=== PATIENT | female | born 1995 | race African-American/Black ===

== ENCOUNTER 2019-10-31 12:54 | Emergency (ER) | payer MEDICAID ==
[~2019-10-31] VITALS: Ht 167.6 cm; Wt 54.0 kg
--- NOTE | 2019-10-31 13:13 | NUR ---
CAME IN FOR MAKE-UP PAD STUCK IN VAGINA SINCE YESTERDAY. ALSO C/O LOWER ABDOMINAL PAIN / PS. TO ER BED 16, HOOKED TO MONITOR, CHANGED TO HOSP GOWN, WARM BLANKET PROVIDED, PATIENT AAO x 4, BREATHING EVEN AND UNLABORED, AWAITING MD LUGO.
--- NOTE | 2019-10-31 14:30 | NUR ---
CHAPERONED DR GUIDRY AT [facility] FOR PELVIC EXAM.
--- NOTE | 2019-10-31 14:40 | NUR ---
WET MOUNT TAKEN BY DR GUIDRY AND URINE SAMPLE SENT TO LAB.
[2019-10-31] MEDS ORDERED: KETOROLAC TROMETHAMINE INJ 30 MG/ML VIAL IM ONE (15:00)
[2019-10-31] MEDS ORDERED: KETOROLAC TROMETHAMINE 15 MG/ML VIAL ONE (15:01)
[2019-10-31] MEDS ORDERED: TDAP [DIPH/PERTUSSIS/TET] 0.5 ML VIAL IM ONE ×2 (15:01→15:30)
[2019-10-31] MEDS ORDERED: CLINDAMYCIN HCL 150 MG CAPSULE PO ONE ×2 (15:08→15:30)
[2019-10-31 15:11] LABS: APPEARANCE,URINE Cloudy (CLEAR); BILIRUBIN,URINE SMALL (NEGATIVE); BLOOD, URINE Large Ery/uL (NEGATIVE); KETONES,URINE 15 (NEGATIVE); LEUKOCYTE ESTERASE ,URINE Negative (NEGATIVE); NITRITE, URINE Negative (NEGATIVE); PROTEIN,URINE 30 mg/dl (NEGATIVE); UGLUCOSE Negative (NEGATIVE)
[2019-10-31 15:12] LABS: COLOR,URINE DARK YELLOW (YELLOW)
--- NOTE | 2019-10-31 15:22 | NUR ---
PATIENT BACK TO ROOM FROM CT SCAN
[2019-10-31 15:23] LABS: BACTERIA,URINE Few /HPF (None Seen); RBC,URINE 21-50 /HPF (0-2); SQUAMOUS EPITHELIAL CELL,UR Moderate /HPF (None Seen)
--- NOTE | 2019-10-31 16:11 | NUR ---
Patient discharged to home in stable condition. Written and verbal after care instructions given. Patient verbalizes understanding of instruction.
[2019-10-31 16:14] VITALS: BP 121/71
== END 2019-10-31 16:14 | disposition home or self-care (01) ==
LOC: ER 12:56
DX: T19.2XXA Foreign body in vulva and vagina, initial encounter (principal); S81.812A Laceration without foreign body, left lower leg, initial encounter; S81.811A Laceration without foreign body, right lower leg, initial encounter; S21.112A Laceration without foreign body of left front wall of thorax without penetration into thoracic cavity, initial encounter; S21.111A Laceration without foreign body of right front wall of thorax without penetration into thoracic cavity, initial encounter; S40.022A Contusion of left upper arm, initial encounter; S40.021A Contusion of right upper arm, initial encounter; S30.0XXA Contusion of lower back and pelvis, initial encounter; R51 Headache; Y04.8XXA Assault by other bodily force, initial encounter; Y93.89 Activity, other specified; Y92.89 Other specified places as the place of occurrence of the external cause; Y99.8 Other external cause status
CPT/HCPCS: 70450; 71111; 72125; 81001; 84703; 87210; 87491; 87591; 90471; 90715; 96372; 99285; J1885; 81000-TC

== ENCOUNTER 2020-04-06 09:56 | Emergency (ER) | payer MEDICAID ==
[~2020-04-06] VITALS: Ht 172.7 cm; Wt 61.2 kg
--- NOTE | 2020-04-06 10:12 | NUR ---
URINE SPECIMEN COLLECTED AND SENT TO LAB.
--- NOTE | 2020-04-06 10:18 | NUR ---
AT BEDSIDE FOR EVAL.
[2020-04-06] MEDS ORDERED: HYDROCODONE/APAP 10/325MG TABLET PO ONE (10:30)
[2020-04-06] MEDS ORDERED: HYDROCODONE/APAP 10/325MG TABLET ONE (10:56)
[2020-04-06 11:01] LABS: BASOPHILS # (AUTO) 0.1 /CMM (0.0-0.2); BASOPHILS % (AUTO) 0.7 % (0.0-2.0); HEMATOCRIT 34 % (33-45); HEMOGLOBIN 11.1 g/dL (11.5-14.8); LYMPHOCYTES # (AUTO) 0.8 /CMM (0.8-4.8); LYMPHOCYTES % (AUTO) 9.4 % (20.0-44.0); MEAN CORPUSCULAR HGB CONC 33 g/dl (31.0-36.0); MEAN CORPUSCULAR VOLUME 96 fL (82-100); MONOCYTES # (AUTO) 0.6 /CMM (0.1-1.30); NEUTROPHILS # (AUTO) 7.5 /CMM (1.8-8.9); NEUTROPHILS % (AUTO) 82.9 % (43.0-81.0); PLATELET COUNT (AUTO) 186 /CMM (150-450); RED BLOOD CELL COUNT(AUTO) 3.55 MIL/uL (4.0-5.2)
[2020-04-06 11:16] LABS: CALCIUM, SERUM 9.1 mg/dL (8.5-10.1); POTASSIUM 3.6 mmol/L (3.5-5.1)
[2020-04-06 11:21] LABS: ALBUMIN 3.1 g/dL (3.4-5.0); BILIRUBIN,DIRECT 0.3 mg/dL (0.0-0.2); BILIRUBIN,TOTAL 1.2 mg/dL (0.2-1.0); TOTAL PROTEIN, SERUM 7.5 g/dL (6.4-8.2)
[2020-04-06 11:24] LABS: BILIRUBIN,URINE Negative (NEGATIVE); BLOOD, URINE Moderate Ery/uL (NEGATIVE); COLOR,URINE YELLOW (YELLOW); LEUKOCYTE ESTERASE ,URINE Large (NEGATIVE); NITRITE, URINE Negative (NEGATIVE); PH,URINE 6.5 (5.0-8.0); PROTEIN,URINE 30 mg/dl (NEGATIVE); UGLUCOSE Negative (NEGATIVE); UROBILINOGEN,URINE 0.2 EU/dL (0.2)
--- NOTE | 2020-04-06 11:45 | NUR ---
DR MARCUS SPEAKING WITH DR GALINDO
[2020-04-06 11:54] LABS: BACTERIA,URINE Many /HPF (None Seen); SQUAMOUS EPITHELIAL CELL,UR Moderate /HPF (None Seen); WBC,URINE TOO NUMEROUS TO COUN /HPF (0-3)
[2020-04-06] MEDS ORDERED: CEFEPIME 1 GM in IV D5W 50 ML IV ONE (12:00)
[2020-04-06] MEDS ORDERED: DOXYCYCLINE 100 MG in IV D5W 250 ML IV ONE (12:00)
--- NOTE | 2020-04-06 12:20 | NUR ---
Updated and Re-evaluated by MD Patient discharged to home in stable condition. Written and verbal after care instructions given. Patient verbalizes understanding of instruction.
[2020-04-06] MEDS ORDERED: ONDANSETRON HCL/PF 4 MG/2 ML VIAL ONE (14:26)
[2020-04-06] MEDS ORDERED: MORPHINE SULFATE INJ 4 MG/ML DISP.SYRIN ONE (14:26)
[2020-04-06] MEDS ORDERED: ONDANSETRON HCL/PF 4 MG/2 ML VIAL IM ONE (14:30)
[2020-04-06] MEDS ORDERED: MORPHINE SULFATE INJ 10 MG/ML DISP.SYRIN IM ONE (14:30)
[2020-04-06 14:52] VITALS: BP 120/75
--- NOTE | 2020-04-06 14:53 | NUR ---
Patient discharged to home in stable condition. Written and verbal after care instructions given. Patient verbalizes understanding of instruction.
== END 2020-04-06 14:53 | disposition home or self-care (01) ==
LOC: ER 09:56
DX: N73.8 Other specified female pelvic inflammatory diseases (principal); N70.93 Salpingitis and oophoritis, unspecified
CPT/HCPCS: 76856; 80048; 80076; 81001; 84703; 85025; 87070; 87081; 87110; 87210; 87491; 87591; 96365; 96367; 96372 ×2; 99285; J0692; J2270; J2405; J3490; J7060; 36415

== ENCOUNTER 2020-08-07 14:03 | Emergency (ER) | payer MEDICAID, OTHER ==
[~2020-08-07] VITALS: Ht 172.7 cm; Wt 61.2 kg
--- NOTE | 2020-08-07 14:56 | NUR ---
BIBS TO ER BED 9. AAOX4. NOT IN RESP DISTRESS, BREATHING EVEN AND UNLABORED. AMBULATORY. CAME IN FOR L LOWER RIB AREA PAIN (UNDER THE BREAST) EXTENDING TO BACK X 4 DAYS. AGGREVATED BY MOVING, DEEP BREATHING AND LAUGHING. WAS AT THE BEDSIDE FOR EVAL. ORDERS RECEIVED, NOTED AND CARRIED OUT.
[2020-08-07 16:32] VITALS: BP 135/81
== END 2020-08-07 16:32 | disposition home or self-care (01) ==
LOC: ER 14:05
DX: K64.9 Unspecified hemorrhoids (principal); K59.00 Constipation, unspecified; M94.0 Chondrocostal junction syndrome [Tietze]
CPT/HCPCS: 71100-TC

== ENCOUNTER 2020-12-28 14:46 | Emergency (ER) | payer MEDICAID, OTHER ==
[~2020-12-28] VITALS: Ht 172.7 cm; Wt 61.2 kg
[2020-12-28] MEDS ORDERED: IV NS 0.9% 1,000 ML BAG IV ONE (15:00)
--- NOTE | 2020-12-28 15:13 | NUR ---
RUQ ABDOMINAL PAIN, +NAUSEA SINCE LAST NIGHT S/P ALCOHOL INTAKE. PT AAOX4, VSS. RR EVEN & UNLABORED. DENIES CP, SOB, DIZZINESS AT THIS TIME. PT SEEN & EVAL'D BY DR. LOPEZ. WILL CONT TO MONITOR.
[2020-12-28 15:17] LABS: BASOPHILS % (AUTO) 0.9 % (0.0-2.0); HEMATOCRIT 37 % (33-45); HEMOGLOBIN 12.2 g/dL (11.5-14.8); LYMPHOCYTES % (AUTO) 39.5 % (20.0-44.0); MEAN CORPUSCULAR HGB CONC 33 g/dl (31.0-36.0); MEAN CORPUSCULAR VOLUME 98 fL (82-100); MONOCYTES # (AUTO) 0.5 K/uL (0.1-1.30); MONOCYTES % (AUTO) 18.3 % (2.0-12.0); NEUTROPHILS % (AUTO) 41.3 % (43.0-81.0); PLATELET COUNT (AUTO) 168 K/uL (150-450); RED BLOOD CELL COUNT(AUTO) 3.81 MIL/uL (4.0-5.2); WHITE BLOOD COUNT (AUTO) 2.5 K/uL (4.3-11.0)
[2020-12-28 15:38] LABS: BILIRUBIN,URINE SMALL (NEGATIVE); COLOR,URINE YELLOW (YELLOW); LEUKOCYTE ESTERASE ,URINE NEGATIVE (NEGATIVE); NITRITE, URINE NEGATIVE (NEGATIVE); PROTEIN,URINE TRACE mg/dl (NEGATIVE); UGLUCOSE NEGATIVE (NEGATIVE); UROBILINOGEN,URINE 0.2 EU/dL (0.2)
[2020-12-28 15:40] LABS: CALCIUM, SERUM 8.4 mg/dL (8.5-10.1); CREATININE 0.9 mg/dL (0.6-1.3); POTASSIUM 3.3 mmol/L (3.5-5.1)
[2020-12-28 15:48] LABS: ALBUMIN 3.6 g/dL (3.4-5.0); BILIRUBIN,DIRECT 0.1 mg/dL (0.0-0.2); BILIRUBIN,TOTAL 0.4 mg/dL (0.2-1.0); TOTAL PROTEIN, SERUM 7.6 g/dL (6.4-8.2)
[2020-12-28 15:53] LABS: BACTERIA,URINE 1+ /HPF (None Seen); SQUAMOUS EPITHELIAL CELL,UR 21-50 /HPF (None Seen)
[2020-12-28] MEDS ORDERED: MAG HYDROX/AL HYDROX/SIMETH 30 ML UDC PO ONE (16:00)
[2020-12-28] MEDS ORDERED: ONDANSETRON HCL/PF 4 MG/2 ML VIAL IVP ONE (16:00)
[2020-12-28] MEDS ORDERED: LIDOCAINE VISCOUS 2% UD 15 ML UDC MM ONE (16:00)
[2020-12-28] MEDS ORDERED: FAMOTIDINE/PF INJ 20 MG/2 ML VIAL IV ONE ×2 (16:00→16:10)
[2020-12-28] MEDS ORDERED: ONDANSETRON HCL/PF 4 MG/2 ML VIAL ONE (16:09)
[2020-12-28] MEDS ORDERED: MAG HYDROX/AL HYDROX/SIMETH 30 ML UDC ONE (16:09)
[2020-12-28] MEDS ORDERED: LIDOCAINE VISCOUS 2% UD 15 ML UDC ONE (16:09)
--- NOTE | 2020-12-28 16:16 | NUR ---
MEDICATED ORDERED, PT AURELIA WELL.
[2020-12-28 16:34] LABS: LYMPHOCYTES % (MANUAL) 43 % (16-48); MONOCYTES % (MANUAL) 12 % (0-11.0); NEUTROPHILS % (MANUAL) 45 (42-76)
[2020-12-28] MEDS ORDERED: ONDA4TAB5 PO (16:42)
[2020-12-28] MEDS ORDERED: FAMO-131 PO (16:42)
[2020-12-28 17:40] VITALS: BP 121/75
--- NOTE | 2020-12-28 17:40 | NUR ---
Patient discharged to home in stable condition. Written and verbal after care instructions given. Patient verbalizes understanding of instruction. IV removed. Catheter intact and site benign. Pressure and 4x4 applied to site. No bleeding noted.
== END 2020-12-28 17:41 | disposition home or self-care (01) ==
LOC: ER 14:50
DX: R10.11 Right upper quadrant pain (principal); R11.0 Nausea; F10.10 Alcohol abuse, uncomplicated; E88.89 Other specified metabolic disorders; F17.200 Nicotine dependence, unspecified, uncomplicated; Y90.9 Presence of alcohol in blood, level not specified
CPT/HCPCS: 36415; 76705; 80048; 80076; 81001; 83690; 84703; 85007; 85025; 96361; 96374; 96375; 99284; J2405; J3490; J7030

== ENCOUNTER 2021-07-11 12:30 | Emergency (ER) | payer MEDICAID ==
[~2021-07-11] VITALS: Ht 172.7 cm; Wt 61.2 kg
[~2021-07-11 12:30] MED LIST: FAMO-131 PO; ONDA4TAB5 PO
--- NOTE | 2021-07-11 12:50 | NUR ---
BIB SELF C/O RECTAL PAIN 5/10 X 3 DAYS AND TAMPON STUCK. DENIES HAVING VAGINAL BLEEDING. ABDOMEN SOFT AND NON-DISTENDED. WILL CONTINUE TO MONITOR THE PATIENT.
--- NOTE | 2021-07-11 12:58 | NUR ---
WET MOUNT SWAB SENT TO THE LAB
--- NOTE | 2021-07-11 14:04 | NUR ---
URINE COLLECTED AND SENT TO THE LAB
[2021-07-11 14:05] LABS: BILIRUBIN,URINE SMALL (NEGATIVE); COLOR,URINE DARK YELLOW (YELLOW); LEUKOCYTE ESTERASE ,URINE NEGATIVE (NEGATIVE); NITRITE, URINE NEGATIVE (NEGATIVE); PH,URINE 6.5 (5.0-8.0); PROTEIN,URINE NEGATIVE (NEGATIVE); UGLUCOSE NEGATIVE (NEGATIVE); UROBILINOGEN,URINE 0.2 EU/dL (0.2)
[2021-07-11] MEDS ORDERED: METR500T PO ×2 (14:15→14:24)
[2021-07-11] MEDS ORDERED: HYDR30CR79 TP ×2 (14:15→14:24)
[2021-07-11 14:26] VITALS: BP 122/64
--- NOTE | 2021-07-11 14:26 | NUR ---
Patient discharged to home in stable condition. Written and verbal after care instructions given. Patient verbalizes understanding of instruction.
[2021-07-11 15:02] LABS: BACTERIA,URINE None seen /HPF (None Seen); MUCUS,URINE Few /LPF (None Seen); RBC,URINE 0-2 /HPF (0-2); SQUAMOUS EPITHELIAL CELL,UR Few /HPF (None Seen); WBC,URINE 0-2 /HPF (0-3)
== END 2021-07-11 14:27 | disposition home or self-care (01) ==
LOC: ER 12:33
DX: N76.0 Acute vaginitis (principal); B96.89 Other specified bacterial agents as the cause of diseases classified elsewhere; K62.89 Other specified diseases of anus and rectum; F17.200 Nicotine dependence, unspecified, uncomplicated; Z87.19 Personal history of other diseases of the digestive system; Z87.42 Personal history of other diseases of the female genital tract; Z79.52 Long term (current) use of systemic steroids; Z79.899 Other long term (current) drug therapy
CPT/HCPCS: 81001; 84703; 87210; 87491; 87591; 99284; A6403

== ENCOUNTER 2025-01-21 20:48 | Emergency (ER) | payer MEDICAID, OTHER ==
[~2025-01-21] VITALS: Ht 172.7 cm; Wt 59.0 kg
[~2025-01-21 20:48] MED LIST changes: +HYDR30CR79 TP; +METR500T PO
[2025-01-21] MEDS ORDERED: IBUP-1953 PO (22:09)
[2025-01-21] MEDS ORDERED: HYDR-4275 PO (22:15)
[2025-01-21 22:24] VITALS: BP 126/80; TEMP 98.1; O2SAT 97
== END 2025-01-21 22:25 | disposition home or self-care (01) ==
LOC: ER 20:50
DX: M25.562 Pain in left knee (principal); F17.200 Nicotine dependence, unspecified, uncomplicated; Z79.899 Other long term (current) drug therapy; X58.XXXA Exposure to other specified factors, initial encounter; Y93.89 Activity, other specified; Y92.89 Other specified places as the place of occurrence of the external cause; Y99.8 Other external cause status
CPT/HCPCS: 73564-TC